=== PATIENT | male | born 1955 | race Asian ===

== ENCOUNTER 2018-03-19 14:40 | Inpatient (IN) | payer MEDICAID ==
[~2018-03-19] VITALS: Ht 165.1 cm; Wt 70.8 kg
[2018-03-19] VITALS (12 sets, daily range): BP systolic 85–112; BP diastolic 52–72
--- NOTE | 2018-03-19 14:34 | Emergency Room Report ---
History of Present Illness General Source: Patient, EMS Present Illness HPI Patient is a 63-year-old male brought in by EMS after a recent fall. The patient reports tripping. The patient is Latvian speaking he reports having previous CVA approximately 3 years ago. He has residual right-sided weakness. Patient denies loss of consciousness. He denies any locations of pain at this time. Patient is normally ambulatory with a cane. He denies any fever or severe pain at this time Allergies: Coded Allergies: No Known Allergies (Unverified , 03/19/18) Patient History Past Medical History: see triage record Reviewed Nursing Documentation: PMH: Agreed; PSxH: Agreed Review of Systems All Other Systems: negative except mentioned in HPI Physical Exam General Appearance: well appearing, no apparent distress, alert, GCS 15 Head: normocephalic, atraumatic ENT: hearing grossly normal, normal voice Neck: full range of motion, supple Respiratory: no respiratory distress, speaking full sentences Cardiovascular #1: normal peripheral pulses, regular rate, rhythm, no edema, no gallop Musculoskeletal: normal inspection, back normal, digits/nails normal, normal range of motion, no calf tenderness 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 Total critical care time excluding procedures approximately 45 minutes. Central Line Central Line : Consent: Verbal Central Line Lumen: triple Maximal Sterile Barrier Tech: yes cap, yes mask, yes sterile gown, yes sterile gloves, yes large sterile sheet, yes hand hygiene, yes chlorhexidine prep Central Line Postion: internal jugular (R) Anesthesia: local cc's of anesthesia: 3 Complications: none Central Line Post Position: sutured, good blood return, position confirmed w / CXR Attempts: One Patient Tolerated: Well Complications: None Medical Decision Making Diagnostic Impression: Primary Impression: Fever Additional Impressions: Pneumonia Septic shock ER Course Patient presented for fever and generalized weakness. Differential diagnosis included wasn't limited to pneumonia, urinary tract infection, drug fever, allergic reaction, sepsis, cholecystitis, among others. Chest x-ray one view interpreted by radiology showed moderate focal size infiltrate in the right mid lung field consistent with pneumonia. Heart is borderline enlarged. Aortic is calcified. The patient was started on IV fluids as well as IV antibiotics. The patient was noted to be briefly hypotensive. Laboratory testing was told for elevated white blood count as well as increased BUN/creatinine consistent with acute renal insufficiency. The patient will be hospitalized for further evaluation and treatment of pneumonia. Patient was discussed with Dr Wolf [facility] for possible transfer and they agree that humbertotent requires further stabilization. The patient was noted to have continued hypotension. Despite IV fluidsThe patient was given IV antibiotics for treated for pneumonia. The patient subsequently be admitted to [facility].The patient says was started on IV pressors. Repeat exam at 1814 showed the continued hypotension and perfusion appeared adequate on skin signs. Dr. Dell Marin was contacted for inpatient management due to panel physician. Labs Test 03/19/18 15:05 White Blood Count 19.0 K/UL (4.8-10.8) Red Blood Count 3.81 M/UL (4.70-6.10) Hemoglobin 10.8 G/DL (14.2-18.0) Hematocrit 31.8 % (42.0-52.0) Mean Corpuscular Volume 83 FL (80-99) Mean Corpuscular Hemoglobin 28.2 PG (27.0-31.0) Mean Corpuscular Hemoglobin Concent 33.9 G/DL (32.0-36.0) Red Cell Distribution Width 11.7 % (11.6-14.8) Platelet Count 397 K/UL (150-450) Mean Platelet Volume 5.7 FL (6.5-10.1) Neutrophils (%) (Auto) % (45.0-75.0) Lymphocytes (%) (Auto) % (20.0-45.0) Monocytes (%) (Auto) % (1.0-10.0) Eosinophils (%) (Auto) % (0.0-3.0) Basophils (%) (Auto) % (0.0-2.0) Sodium Level 132 MMOL/L (136-145) Potassium Level 5.0 MMOL/L (3.5-5.1) Chloride Level 96 MMOL/L (98-107) Carbon Dioxide Level 24 MMOL/L (21-32) Anion Gap 12 mmol/L (5-15) Blood Urea Nitrogen 39 mg/dL (7-18) Creatinine 2.1 MG/DL (0.55-1.30) Estimat Glomerular Filtration Rate 32.0 mL/min (>60) Glucose Level 97 MG/DL (74-106) Calcium Level 9.5 MG/DL (8.5-10.1) Phosphorus Level 4.0 MG/DL (2.5-4.9) Magnesium Level 1.6 MG/DL (1.8-2.4) Total Bilirubin 0.5 MG/DL (0.2-1.0) Aspartate Amino Transf (AST/SGOT) 17 U/L (15-37) Alanine Aminotransferase (ALT/SGPT) 28 U/L (12-78) Alkaline Phosphatase 68 U/L (46-116) Total Creatine Kinase 43 U/L (26-308) Creatine Kinase MB 0.5 NG/ML (0.0-3.6) Creatine Kinase MB Relative Index 1.1 Troponin I 0.107 ng/mL (0.000-0.056) Total Protein 8.1 G/DL (6.4-8.2) Albumin 2.6 G/DL (3.4-5.0) Globulin 5.5 g/dL Albumin/Globulin Ratio 0.5 (1.0-2.7) EKG Diagnostic Results Rate: tachycardiac - 112 Rhythm: NSR ST Segments: no acute changes Status: unchanged Disposition: ADMITTED INPATIENT Condition: Vega Singh March 19, 2018 14:34
[2018-03-19] MEDS ORDERED: Acetaminophen 500mg (ES) tab ORAL ONE (14:45)
[2018-03-19 15:20] LABS: HEMATOCRIT 31.8 % (42.0-52.0); HEMOGLOBIN 10.8 G/DL (14.2-18.0); MEAN CORPUSCULAR VOLUME 83 FL (80-99); PLATELET COUNT 397 K/UL (150-450); RED BLOOD COUNT 3.81 M/UL (4.70-6.10); RED CELL DISTRIBUTION WIDTH 11.7 % (11.6-14.8)
[2018-03-19 15:21] LABS: ANION GAP 12 mmol/L (5-15); BLOOD UREA NITROGEN 39 mg/dL (7-18); CALCIUM 9.5 MG/DL (8.5-10.1); CARBON DIOXIDE 24 MMOL/L (21-32); CHLORIDE 96 MMOL/L (98-107); CREATININE 2.1 MG/DL (0.55-1.30); SODIUM 132 MMOL/L (136-145)
--- NOTE | 2018-03-19 15:26 | Diagnostic Imaging Report ---
Indication: Dyspnea Comparison: None A single view chest radiograph was obtained. Findings: There is a moderate size focal infiltrate in the right mid lung field consistent with pneumonia. The heart is borderline enlarged. Aorta is calcified. The bones are osteopenic. IMPRESSION: Right sided pneumonia.
[2018-03-19 15:34] LABS: ALANINE AMINOTRANSFERASE 28 U/L (12-78); ALBUMIN 2.6 G/DL (3.4-5.0); ALBUMIN/GLOBULIN RATIO 0.5 (1.0-2.7); ALKALINE PHOSPHATASE 68 U/L (46-116); ASPARTATE AMINO TRANSFERASE 17 U/L (15-37); BILIRUBIN,TOTAL 0.5 MG/DL (0.2-1.0); CKMB 0.5 NG/ML (0.0-3.6); CREATINE KINASE 43 U/L (26-308)
[2018-03-19] MEDS ORDERED: Azithromycin 500 MG in D5W 275 ML IVPB ONE (15:45)
[2018-03-19] MEDS ORDERED: cefTRIAXone 1 GM in NS 55 ML IVPB ONE (15:45)
[2018-03-19] MEDS ORDERED: cefTRIAXone 1 GM in D5W 55 ML IVPB ONE (15:45)
[2018-03-19] MEDS ORDERED: Hydrocortisone 100mg Inj IV ONE (16:00)
[2018-03-19] MEDS ORDERED: Sodium Chloride 500ML 500 ML IV ONE (16:00)
[2018-03-19] MEDS ORDERED: Ascorbic Acid 500mg tab ORAL ONE (16:00)
[2018-03-19] MEDS ORDERED: GABAPENTIN100 MG ORAL (16:57)
[2018-03-19] MEDS ORDERED: LISINOPRIL40 MG ORAL (16:57)
[2018-03-19] MEDS ORDERED: AMLODIPINE BESYL5 MG ORAL (16:57)
[2018-03-19] MEDS ORDERED: GLIMEPIRIDE2 MG ORAL (16:57)
[2018-03-19] MEDS ORDERED: METOPROLOL SUCC25 MG ORAL (16:57)
[2018-03-19] MEDS ORDERED: ASPIRIN EC325 MG ORAL (16:57)
[2018-03-19] MEDS ORDERED: JANUVIA100 MG ORAL (16:57)
[2018-03-19] MEDS ORDERED: METFORMIN HCL1000 M1 ORAL (16:57)
[2018-03-19] MEDS ORDERED: LIPITOR20 MG ORAL (16:57)
[2018-03-19] MEDS ORDERED: Calcium Gluconate 1gm/10ml vial IVP ONE (17:00)
[2018-03-19] MEDS ORDERED: Lidocaine 1% Plain 30 ml INJ ONE (17:51)
[2018-03-19] MEDS ORDERED: Levophed 4mg/4mL Inj IV ONE (18:10)
[2018-03-19] MEDS ORDERED: CILOXAN 0.3% O1 DROP (18:10)
[2018-03-19] MEDS ORDERED: Lidocaine 1% MPF 10mg/ml 5ml INJ ONE (18:45)
[2018-03-19 20:20] LABS: APPEARANCE,URINE CLEAR; BILIRUBIN, URINE NEGATIVE (NEGATIVE); GLUCOSE, URINE (UA) NEGATIVE (NEGATIVE); KETONES,URINE NEGATIVE (NEGATIVE); LEUKOCYTE ESTERASE ,URINE 1+ (NEGATIVE); NITRITE,URINE NEGATIVE (NEGATIVE); PH,URINE 5 (4.5-8.0); PROTEIN,URINE 1+ (NEGATIVE); UROBILINOGEN,URINE NORMAL MG/DL (0.0-1.0)
[2018-03-19 20:22] LABS: COLOR,URINE YELLOW
[2018-03-20] VITALS (24 sets, daily range): BP systolic 80–132; BP diastolic 46–65
[2018-03-20] MEDS: Cefepime HCl 1 GM in D5W 55 ML IVPB SCH ×2 (00:35→23:43)
[2018-03-20] MEDS: Albuterol/Ipratropium 3ml neb HHN SCH ×4 (00:47→18:48)
[2018-03-20] MEDS ORDERED: Vancomycin 750mg/NS 250ml IVPB SCH (01:00)
[2018-03-20 05:01] LABS: HEMATOCRIT 28.2 % (42.0-52.0); HEMOGLOBIN 9.9 G/DL (14.2-18.0); MEAN CORPUSCULAR VOLUME 84 FL (80-99); PLATELET COUNT 376 K/UL (150-450); RED BLOOD COUNT 3.38 M/UL (4.70-6.10); RED CELL DISTRIBUTION WIDTH 11.5 % (11.6-14.8); WHITE BLOOD COUNT 15.8 K/UL (4.8-10.8)
--- NOTE | 2018-03-20 05:15 | History and Physical Report ---
DATE OF ADMISSION: 03/19/2018 REASON FOR ADMISSION: Pneumonia, sepsis and shock. HISTORY OF PRESENT ILLNESS: This is a 63-year-old male with prior history of cerebrovascular accident and left-sided weakness who presented to the emergency room today complaining of generalized weakness and a fall with no loss of consciousness. However, he also was noted to have low blood pressure and subsequently and pneumonia on chest x-ray. PAST MEDICAL HISTORY: CVA, hypertension, hyperlipidemia, type 2 diabetes mellitus. MEDICATIONS: Prior to admission, reviewed and reconciled. ALLERGIES: None known. SOCIAL HISTORY: Negative for smoking, alcohol, or substance abuse. REVIEW OF SYSTEMS: No apparent fevers. No history of thyroid disorder. He is on oral therapy for diabetes and a statin drug. He has had a prior stroke with residual weakness on the right. There is no known history of cardiac arrhythmias or myocardial infarction. He does have high blood pressure. There is no history of asthma or blood clots in the legs. He has not noted any change in bowel habits. PHYSICAL EXAMINATION: VITAL SIGNS: Blood pressure in the emergency room was 92/53, heart rate 89, and respiratory rate 18. He was afebrile. HEENT: Notable for conjunctivae are pink. Sclerae are anicteric. Oropharynx clear. Mucous membranes dry. NECK: Supple. LUNGS: With rhonchi. CARDIAC: Regular rhythm and rate. Normal S1 and S2 with a fourth heart sound. ABDOMEN: Soft and nontender. EXTREMITIES: No edema. NEUROLOGIC: With right-sided weakness. There is a central line in the right jugular region. The entry site appearing clean and dry. LABORATORY AND DIAGNOSTIC DATA: White count 19 and hemoglobin 10.8. Potassium 5, sodium 132, bicarbonate 24, BUN 39, and creatinine 2.1. Magnesium 1.6. Troponin 0.107. Albumin 2.6. IMPRESSION: 1. Sepsis. 2. Shock. 3. Hypovolemia. 4. Community-acquired pneumonia. 5. CVA with hemiparesis. 6. Acute myocardial ischemia and possible myocardial infarction. 7. Hypomagnesemia. 8. hyponatremia. PLAN: 1. Hydration. 2. Broad-spectrum antibiotics following cultures. 3. Skin care. 4. Stress ulcer and DVT prophylaxis. 5. Anti-platelet therapy with aspirin. 6. Hold oral hypoglycemics and insulin titration and coverage by sliding scale. 7. Hold antihypertensives. 8. Volume resuscitation. 9. Taper off pressors. 10. Condition is critical and prognosis is guarded. Dell Marin M.D. DR: BETTY JOB#: [id number] CC:
[2018-03-20 05:28] LABS: ALANINE AMINOTRANSFERASE 23 U/L (12-78); ALBUMIN 2.1 G/DL (3.4-5.0); ALBUMIN/GLOBULIN RATIO 0.5 (1.0-2.7); ALKALINE PHOSPHATASE 58 U/L (46-116); ANION GAP 8 mmol/L (5-15); ASPARTATE AMINO TRANSFERASE 14 U/L (15-37); BILIRUBIN,TOTAL 0.4 MG/DL (0.2-1.0); BLOOD UREA NITROGEN 31 mg/dL (7-18); CALCIUM 8.1 MG/DL (8.5-10.1); CARBON DIOXIDE 25 MMOL/L (21-32); CHLORIDE 104 MMOL/L (98-107); CREATININE 1.3 MG/DL (0.55-1.30); POTASSIUM 4.7 MMOL/L (3.5-5.1); SODIUM 137 MMOL/L (136-145)
[2018-03-20] MEDS: NovoLOG Insulin Flexpen SUBQ SCH ×4 (06:05→21:36)
--- NOTE | 2018-03-20 09:51 | Diagnostic Imaging Report ---
Indication: Line placement Comparison: 03/19/2018 at 15:00 A single view chest radiograph was obtained. Findings: Right jugular line is present in good position. The tip is projected over the SVC. There is no pneumothorax. Infiltrate in the right lung consistent with pneumonia. Small infiltrate has developed at left upper lobe as well. Heart remains stable. IMPRESSION: Right jugular central line in good position. No pneumothorax
[2018-03-20] MEDS: Heparin 5000 units/ml inj SUBQ SCH ×2 (10:00→21:32)
[2018-03-20] MEDS ORDERED: NS 500ML ONE (10:01)
[2018-03-20] MEDS ORDERED: Sterile Water Irrig 1000ml IRRIG ONE (10:01)
[2018-03-20] MEDS ORDERED: Tubing IV Secondary IV ONE (10:01)
--- NOTE | 2018-03-20 17:06 | Consultation ---
Consult Note Assessment/Plan dict pneumonia septic shock, resolved DM MONALISA on CKD dehydration agree with current rx Isaiah Sousa MD March 20, 2018 17:06
--- NOTE | 2018-03-20 18:00 | Consultation ---
DATE OF CONSULTATION: PULMONARY CONSULTATION CONSULTING PHYSICIAN: Isaiah Sousa M.D. CHIEF COMPLAINT: Pneumonia and shock. HISTORY OF PRESENT ILLNESS: The patient is a 63-year-old man who apparently fell at home. He was found to have low blood pressure and brought to the emergency department. Evaluation showed evidence of large pneumonia on the right side, and he had fever of 102. Admission was arranged, and he was placed on fluids and vasopressors, and admitted to ICU. Today, he has improved and is off vasopressors and is being transferred out from the ICU. He is in no distress, but does not speak Kinyarwanda and can provide no further history. PAST MEDICAL HISTORY: Includes stroke hypertension, hyperlipidemia, diabetes, as well as obesity. PAST PULMONARY HISTORY: Not known. SMOKING HISTORY: Negative. ALLERGIES: None. REVIEW OF SYSTEMS: Cannot be obtained. Dr. Marin apparently got some review of systems from the family. PHYSICAL EXAMINATION: GENERAL: The patient is alert and responsive. VITAL SIGNS: Show the temperature was 102.8 on presentation, but today, it is 99.6. The other vital signs are normal. His saturation is 93 to 98 on 4 liters nasal cannula. Respirations are 32. SKIN: Skin is warm and dry. HEENT: Head is normocephalic. NECK: No jugular venous distention. CHEST: Few rhonchi on the right side. CARDIAC: Rhythm is regular. ABDOMEN: Soft and nontender. Liver and spleen not enlarged. EXTREMITIES: No clubbing, cyanosis, or edema. LABORATORY AND DIAGNOSTIC DATA: White count was 19,000, down to 15,800 today; hemoglobin is 9.9; and platelets are normal. Chemistry shows blood sugar 158; creatinine is 1.3, down from 2.1 yesterday after fluid resuscitation. Lactic acid was elevated, but is now normal. Albumin is low at 2.1. Urinalysis is negative. Chest x-ray shows a large right upper lobe infiltrate and today, there is a small left upper lobe infiltrate. IMPRESSION: 1. Pneumonia and sepsis. 2. Septic shock, improving. 3. Acute and chronic kidney disease with dehydration. 4. Diabetes. 5. Hypertension. 6. Hyperlipidemia. 7. History of stroke. PLAN: The patient will continue on his current antibiotics. He will continue on bronchodilators and oxygen. He is in satisfactory condition to transfer out of intensive care unit at this time. I will follow closely with you. Isaiah Sousa M.D. DR: CHEVY JOB#: [id number] CC: Dell Marin M.D.
[2018-03-20] MEDS ORDERED: Dyna-Hex 2% Top Sol 2oz TOPIC SCH (20:00)
[2018-03-21 00:05] VITALS: BP 130/70
[2018-03-21] MEDS: Albuterol/Ipratropium 3ml neb HHN SCH ×5 (01:08→23:40)
[2018-03-21] MEDS: Vancomycin 750mg/NS 250ml 250 ML IVPB SCH (01:16)
[2018-03-21 04:00] VITALS: BP 124/71
--- NOTE | 2018-03-21 04:45 | Progress Note ---
DATE: 03/20/2018 INTERNAL MEDICINE PROGRESS NOTE SUBJECTIVE: The patient remains in the intensive care unit. Blood pressure stabilized. He is off pressors. He is not short of breath. OBJECTIVE: VITAL SIGNS: Blood pressure 109/57, pulse 101, respiratory rate 16, and temperature 99.1. HEENT: Oropharynx clear. No thrush. NECK: Supple. No accessory muscle use. LUNGS: With rhonchi and rales at the right. CARDIAC: Regular rhythm and rate. Normal S1, S2 with a fourth heart sound. ABDOMEN: Soft. EXTREMITIES: With no edema. 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 LABORATORY AND DIAGNOSTIC DATA: Potassium 4.7, BUN 31, and creatinine 1.3. Lactic acid now 1.3. Albumin 2.1. Troponin negative. White count 15.8 and hemoglobin 9.9. IMPRESSION: 1. Community-acquired pneumonia, aspiration risk. 2. Sepsis with shock recovered. 3. Microcytic anemia. 4. Severe protein-calorie malnutrition. 5. Acute diastolic congestive heart failure. 6. Prerenal azotemia, resolved. 7. Lactic acidosis. 8. History of cerebrovascular accident. PLAN: 1. Decrease intravenous fluids. 2. Continue antibiotics. 3. Respiratory hygiene. 4. Swallow evaluation. 5. Protein supplement. 6. DVT prophylaxis. 7. Bronchodilators. 8. Follow up culture results and adjust therapy accordingly. 9. Transfer to step-down unit continued stable course. Dell Marin M.D. DR: TAB JOB#: [id number] CC:
[2018-03-21] MEDS: NovoLOG Insulin Flexpen SUBQ SCH ×4 (06:53→21:05)
[2018-03-21 08:00] VITALS: BP 123/74
[2018-03-21] MEDS: Heparin 5000 units/ml inj SUBQ SCH ×2 (08:58→21:06)
[2018-03-21 09:30] LABS: ALANINE AMINOTRANSFERASE 27 U/L (12-78); ALBUMIN/GLOBULIN RATIO 0.4 (1.0-2.7); ALKALINE PHOSPHATASE 61 U/L (46-116); ANION GAP 9 mmol/L (5-15); ASPARTATE AMINO TRANSFERASE 15 U/L (15-37); BILIRUBIN,TOTAL 0.3 MG/DL (0.2-1.0); BLOOD UREA NITROGEN 11 mg/dL (7-18); CALCIUM 8.1 MG/DL (8.5-10.1); CARBON DIOXIDE 25 MMOL/L (21-32); CHLORIDE 104 MMOL/L (98-107); CREATININE 0.9 MG/DL (0.55-1.30); POTASSIUM 3.7 MMOL/L (3.5-5.1); SODIUM 138 MMOL/L (136-145)
[2018-03-21 09:31] LABS: HEMATOCRIT 28.8 % (42.0-52.0); HEMOGLOBIN 9.7 G/DL (14.2-18.0); MEAN CORPUSCULAR VOLUME 84 FL (80-99); PLATELET COUNT 362 K/UL (150-450); RED BLOOD COUNT 3.41 M/UL (4.70-6.10); RED CELL DISTRIBUTION WIDTH 11.7 % (11.6-14.8); WHITE BLOOD COUNT 13.6 K/UL (4.8-10.8)
[2018-03-21 12:00] VITALS: BP 123/65
--- NOTE | 2018-03-21 15:22 | Cardiology Report ---
APPROVED REPORT EKG Measurement Heart [id number] Sinus tachycardia Otherwise normal ECG
[2018-03-21 16:00] VITALS: BP 129/73
[2018-03-21] MEDS ORDERED: Tubing IV Secondary IV ONE (16:44)
--- NOTE | 2018-03-21 17:45 | Consultation ---
DATE OF CONSULTATION: 03/21/2018 INFECTIOUS DISEASES CONSULTATION CONSULTING PHYSICIAN: Castro Leonard M.D. REFERRING PHYSICIAN: Dell Marin M.D. REASON FOR CONSULTATION: Pneumonia. HISTORY OF PRESENTING ILLNESS: This is a 63-year-old gentleman with history of diabetes, hypertension, CVA, and hyperlipidemia, who came into the emergency room with weakness and a fall with no loss of consciousness. He was found to be hypotensive and found to have pneumonia on the chest x-ray and an Infectious Diseases consultation has been obtained for antibiotics. PAST MEDICAL HISTORY: 1. History of diabetes. 2. Hypertension. 3. CVA. 4. Hyperlipidemia. MEDICATIONS: As an inpatient, the patient is on cefepime, chlorhexidine gluconate, aspirin, gabapentin, subcutaneous heparin, Protonix, IV vancomycin, insulin, Tylenol, albuterol, and ipratropium. ALLERGIES: No known drug allergies. SOCIAL HISTORY: No history of smoking, alcohol, or drug use. FAMILY HISTORY: Unknown. REVIEW OF SYSTEMS: Unable to obtain currently. PHYSICAL EXAMINATION: VITAL SIGNS: Temperature of 97.9, T-max of 99.6, pulse of 119, respiratory rate of 20, blood pressure 123/74, and O2 saturation of 97%. HEENT: Pupils equally reactive to light and accommodation. Mouth appears clean without thrush. NECK: Supple. No adenopathy. No jugular venous distention. CARDIOVASCULAR: Regular rate and rhythm. No murmurs. LUNGS: Clear to auscultation bilaterally. No crackles. No wheezes. ABDOMEN: Soft and nontender. No organomegaly. EXTREMITIES: No cyanosis, no clubbing, no edema. Right IJ catheter noted. LABORATORY AND DIAGNOSTIC DATA: White count 13.6, hemoglobin 9.7, hematocrit 28.8, MCV 84, and platelet count of 362,000 with neutrophils of 95%. White count of 15 on 03/20/2018 and white count of 19 on 03/19/2018. Sodium 138, potassium 3.7, chloride 104, bicarb 25, BUN 11, creatinine 0.9, glucose 184, and calcium 8.1. Total bilirubin 0.3. AST 15, ALT 27, and alkaline phosphatase 61. Total protein 6.8. Albumin of 2. UA is showing 2 to 4 white cells. Sputum cultures are pending. Blood cultures are negative. Chest x-ray is showing right-sided pneumonia. ASSESSMENT: 1. This is a 63-year-old gentleman with history of diabetes and hypertension, who comes in after a fall and weakness and is found to have a right-sided pneumonia. 2. Leukocytosis is improving. 3. Diabetes. 4. Hypertension. PLAN: 1. Continue vancomycin and cefepime. 2. We will follow up sputum cultures and adjust antibiotics accordingly. 3. We will order for serum Legionella antibody. 4. We will order for mycoplasma serology. 5. We will add doxycycline. I would like to thank, Dr. Marin, for this consultation. Castro Leonard M.D. DR: MALLORY JOB#: [id number] CC: Dell Marin M.D.
[2018-03-21 20:00] VITALS: BP 124/63
[2018-03-21] MEDS: Dyna-Hex 2% Top Sol 2oz TOPIC SCH (20:08)
--- NOTE | 2018-03-21 20:45 | Progress Note ---
DATE: 03/21/2018 CARDIOLOGY PROGRESS NOTE SUBJECTIVE: The patient feels better. No shortness of breath. Less cough and congestion. OBJECTIVE: VITAL SIGNS: Blood pressure 123/74, pulse 119, respiratory rate 20 and afebrile. Oxygen saturation is 97% on 3 liters nasal cannula. LUNGS: Bilateral breath sounds. Rhonchi at the . CARDIAC: Regular rhythm and rate. Normal S1 and S2. ABDOMEN: Soft. EXTREMITIES: No edema. IMPRESSION: 1. Right upper lobe pneumonia, probable aspiration. 2. History of cerebrovascular accident with left-sided weakness. 3. Recovered sepsis with shock. 4. Resolving leukocytosis. 5. Microcytic anemia. 6. Severe protein-calorie malnutrition. 7. Chronic diastolic congestive heart failure and hypertensive heart disease. PLAN: 1. Continue antimicrobials. 2. Respiratory hygiene. 3. Follow up laboratory studies. 4. Nutritional support. 5. Swallow evaluation. 6. Repeat chest x-ray. Dell Marin M.D. DR: BETTY JOB#: [id number] CC:
[2018-03-22] MEDS ORDERED: Cefepime HCl 1 GM in D5W 55 ML IVPB SCH ×2
[2018-03-22 00:01] VITALS: BP 126/59
[2018-03-22] MEDS: Vancomycin 750mg/NS 250ml 250 ML IVPB SCH (01:30)
[2018-03-22] MEDS: Vancomycin 1gm/D5W 275ml IVPB SCH ×4 (01:59→13:46)
[2018-03-22] MEDS ORDERED: Vancomycin 1gm/D5W 275ml IVPB SCH ×2 (02:00)
[2018-03-22 04:00] VITALS: BP 120/55
[2018-03-22 06:11] LABS: ALANINE AMINOTRANSFERASE 38 U/L (12-78); ALBUMIN/GLOBULIN RATIO 0.4 (1.0-2.7); ALKALINE PHOSPHATASE 68 U/L (46-116); ANION GAP 5 mmol/L (5-15); ASPARTATE AMINO TRANSFERASE 24 U/L (15-37); BILIRUBIN,TOTAL 0.3 MG/DL (0.2-1.0); BLOOD UREA NITROGEN 10 mg/dL (7-18); CALCIUM 8.3 MG/DL (8.5-10.1); CARBON DIOXIDE 31 MMOL/L (21-32); CHLORIDE 102 MMOL/L (98-107); POTASSIUM 3.6 MMOL/L (3.5-5.1); SODIUM 138 MMOL/L (136-145)
[2018-03-22] MEDS: NovoLOG Insulin Flexpen SUBQ SCH ×4 (06:25→20:53)
[2018-03-22 07:47] VITALS: BP 117/71
[2018-03-22] MEDS: Albuterol/Ipratropium 3ml neb HHN SCH ×3 (08:13→18:42)
[2018-03-22] MEDS: Heparin 5000 units/ml inj SUBQ SCH ×2 (08:29→20:52)
[2018-03-22] MEDS: Cefepime HCl 1 GM in D5W 55 ML IVPB SCH ×2 (09:25→20:50)
[2018-03-22] MEDS ORDERED: NS 500ML ONE (10:40)
[2018-03-22 11:43] VITALS: BP 131/73
[2018-03-22 16:03] VITALS: BP 117/69
--- NOTE | 2018-03-22 19:53 | Pulmonology Progress Note ---
Assessment/Plan Assessment/Plan 1. Pneumonia and sepsis. 2. Septic shock, improving. 3. Acute and chronic kidney disease with dehydration. 4. Diabetes. 5. Hypertension. 6. Hyperlipidemia. 7. History of stroke. continue abx nebs ad o2 oob encourage po watch IO bs control CXR saturday Subjective Constitutional: Reports: no symptoms HEENT: Repors: no symptoms Respiratory: Reports: dry cough, sputum Cardiovascular: Reports: no symptoms Gastrointestinal/Abdominal: Reports: no symptoms Genitourinary: Reports: no symptoms Psychiatric: Reports: no symptoms Allergies: Coded Allergies: No Known Allergies (Unverified , 03/19/18) Subjective minimal po no cp nv or bleeding no fever positive cough on o2 Objective Last 24 Hour Vital Signs Date Time Temp Pulse Resp B/P (MAP) Pulse Ox O2 Delivery O2 Flow Rate FiO2 03/22/18 18:50 95 20 99 Nasal Cannula 3.0 32 03/22/18 18:43 Nasal Cannula 3.0 32 03/22/18 18:43 94 Nasal Cannula 3.0 32 03/22/18 18:42 92 20 94 Nasal Cannula 3.0 32 03/22/18 16:05 94 03/22/18 16:03 97.6 71 18 117/69 96 Nasal Cannula 2.0 97.6 03/22/18 14:22 86 20 99 Nasal Cannula 3.0 32 03/22/18 14:12 82 18 98 Nasal Cannula 3.0 32 03/22/18 12:00 84 03/22/18 11:43 98.2 92 18 131/73 95 Nasal Cannula 2.0 98.2 03/22/18 08:23 86 20 99 Nasal Cannula 3.0 32 03/22/18 08:13 83 20 96 Nasal Cannula 3.0 32 03/22/18 08:13 96 Nasal Cannula 3.0 32 03/22/18 08:12 Nasal Cannula 3.0 32 03/22/18 08:00 106 03/22/18 07:47 97.7 106 20 117/71 97 Nasal Cannula 2.0 97.7 03/22/18 04:00 98.2 106 18 120/55 95 98.2 03/22/18 04:00 106 03/22/18 04:00 98.2 106 18 120/55 95 Nasal Cannula 3.0 98.2 03/22/18 00:01 98.6 99 18 126/59 97 98.6 03/22/18 00:01 98.6 99 18 126/59 97 Nasal Cannula 3.0 98.6 03/22/18 00:00 101 03/21/18 23:47 93 18 100 Nasal Cannula 3.0 32 03/21/18 23:40 83 18 98 Nasal Cannula 3.0 32 03/21/18 20:00 97.0 112 18 124/63 98 97.0 03/21/18 20:00 97.0 112 18 124/63 98 Nasal Cannula 3.0 97.0 03/21/18 20:00 114 Intake and Output 03/21/18 03/22/18 19:00 07:00 Intake Total 1150 ml 860.0 ml Output Total 1350 ml 2400 ml Balance -200 ml -1540.0 ml Intake Oral 600 ml IV Total 550 ml 860.0 ml Output Urine Total 1350 ml 2400 ml # Voids 2 General Appearance: WD/WN HEENT: anicteric Respiratory/Chest: rhonchi Cardiovascular: normal rate, regular rhythm Abdomen: soft, non tender, no organomegaly Extremities: no cyanosis Skin: no rash, no lesions Neurologic/Psychiatric: alert Microbiology Date/Time Source Procedure Growth Status 03/20/18 08:30 Sputum Gram Stain - Final Resulted 03/20/18 08:30 Sputum Sputum Culture - Preliminary NORMAL UPPER RESPIRATORY KELLY AT 24 ... Resulted Laboratory Tests 03/22/18 00:45: Vancomycin Level Trough 3.2L 03/22/18 03:50: Sodium Level 138, Potassium Level 3.6, Chloride Level 102, Carbon Dioxide Level 31, Anion Gap 5, Blood Urea Nitrogen 10, Creatinine 1.0, Estimat Glomerular Filtration Rate > 60, Glucose Level 190H, Calcium Level 8.3L, Total Bilirubin 0.3, Aspartate Amino Transf (AST/SGOT) 24, Alanine Aminotransferase (ALT/SGPT) 38, Alkaline Phosphatase 68, Pro-B-Type Natriuretic Peptide 1216H, Total Protein 6.9, Albumin 2.0L, Globulin 4.9, Albumin/Globulin Ratio 0.4L Current Medications Medications (Trade) Dose Ordered Sig/Jennifer Route PRN Reason Start Time Stop Time Status Last Admin Dose Admin Acetaminophen (Tylenol) 650 mg Q4H PRN ORAL Mild Pain/Temp > 100.5 03/21/18 02:45 04/18/18 22:44 Albuterol/ Ipratropium (Albuterol/ Ipratropium) 3 ml Q6HRT HHN 03/21/18 01:00 03/25/18 00:59 03/22/18 18:42 Aspirin (ASA) 325 mg DAILY ORAL 03/21/18 09:00 04/19/18 08:59 03/22/18 08:28 Cefepime HCl 1 gm/ Dextrose 55 ml @ 110 mls/hr Q12HR IVPB 03/22/18 10:00 03/29/18 09:59 03/22/18 09:25 Chlorhexidine Gluconate (Юлия-Hex 2%) 1 applic DAILY@2000 TOPIC 03/21/18 20:00 04/19/18 19:59 03/21/18 20:08 Dextrose (Dextrose 50%) 25 ml STAT PRN IV Hypoglycemia 03/21/18 22:45 04/18/18 22:44 Dextrose (Dextrose 50%) 50 ml STAT PRN IV Hypoglycemia 03/21/18 22:45 04/18/18 22:44 Doxycycline Monohydrate (Vibramycin) 100 mg EVERY 12 HOURS ORAL 03/21/18 13:00 03/28/18 12:59 03/22/18 08:27 Gabapentin (Neurontin) 100 mg THREE TIMES A DAY ORAL 03/21/18 09:00 04/19/18 08:59 03/22/18 17:27 Heparin Sodium (Porcine) (Heparin 5000 units/ml) 5,000 units EVERY 12 HOURS SUBQ 03/21/18 09:00 04/19/18 08:59 03/22/18 08:29 Insulin Aspart (NovoLOG) BEFORE MEALS AND HS SUBQ 03/21/18 06:30 04/19/18 06:29 03/22/18 16:30 Pantoprazole (Protonix) 40 mg DAILY ORAL 03/21/18 09:00 04/19/18 08:59 03/22/18 08:27 Sodium Chloride 1,000 ml @ 50 mls/hr Q20H IV 03/21/18 02:00 04/20/18 01:59 03/22/18 17:27 Vancomycin HCl (Vanco rx to dose) 1 ea DAILY PRN MISC Per rx protocol 03/21/18 09:00 04/18/18 22:44 Vancomycin HCl 1 gm/Dextrose 275 ml @ 183.708 mls/hr Q12H IVPB 03/22/18 02:00 03/27/18 01:59 03/22/18 13:46 KESHA PURDY DO March 22, 2018 19:53
[2018-03-22 20:00] VITALS: BP 133/74
[2018-03-22] MEDS: Dyna-Hex 2% Top Sol 2oz TOPIC SCH (20:50)
[2018-03-23 00:07] VITALS: BP 133/79
[2018-03-23] MEDS: Albuterol/Ipratropium 3ml neb HHN SCH ×4 (00:43→18:42)
[2018-03-23] MEDS: Vancomycin 1gm/D5W 275ml IVPB SCH ×2 (02:27)
[2018-03-23 04:00] VITALS: BP 134/79
[2018-03-23 05:31] LABS: BASOPHILS % (AUTO) 0.6 % (0.0-2.0); HEMATOCRIT 28.9 % (42.0-52.0); HEMOGLOBIN 9.6 G/DL (14.2-18.0); LYMPHOCYTES % (AUTO) 10.5 % (20.0-45.0); MEAN CORPUSCULAR VOLUME 84 FL (80-99); MONOCYTES % (AUTO) 7.1 % (1.0-10.0); NEUTROPHILS % (AUTO) 79.9 % (45.0-75.0); PLATELET COUNT 413 K/UL (150-450); RED BLOOD COUNT 3.43 M/UL (4.70-6.10); RED CELL DISTRIBUTION WIDTH 11.7 % (11.6-14.8); WHITE BLOOD COUNT 9.9 K/UL (4.8-10.8)
[2018-03-23] MEDS: NovoLOG Insulin Flexpen SUBQ SCH ×4 (06:25→21:35)
--- NOTE | 2018-03-23 07:07 | Pulmonology Progress Note ---
Assessment/Plan Assessment/Plan 1. Pneumonia and sepsis. 2. Septic shock, improving. 3. Acute and chronic kidney disease with dehydration. 4. Diabetes. 5. Hypertension. 6. Hyperlipidemia. 7. History of stroke. better today continue abx nebs ad o2 oob encourage po watch IO bs control CXR saturday Subjective Constitutional: Reports: no symptoms HEENT: Repors: no symptoms Respiratory: Reports: no symptoms Cardiovascular: Reports: no symptoms Gastrointestinal/Abdominal: Reports: no symptoms Genitourinary: Reports: no symptoms Allergies: Coded Allergies: No Known Allergies (Unverified , 03/19/18) Subjective hungry this am more awake feels better less cough today no cp nv or bleeding no fever on o2 Objective Last 24 Hour Vital Signs Date Time Temp Pulse Resp B/P (MAP) Pulse Ox O2 Delivery O2 Flow Rate FiO2 03/23/18 06:38 95 Nasal Cannula 3.0 32 03/23/18 06:38 88 16 95 Nasal Cannula 3.0 32 03/23/18 06:38 Nasal Cannula 3.0 32 03/23/18 04:00 91 03/23/18 04:00 97.3 92 18 134/79 95 Nasal Cannula 3.0 97.3 03/23/18 00:53 92 20 100 Nasal Cannula 3.0 32 03/23/18 00:43 90 20 95 Nasal Cannula 3.0 32 03/23/18 00:07 98.9 100 18 133/79 94 Nasal Cannula 3.0 98.9 03/23/18 00:00 99 03/22/18 20:00 99.0 102 19 133/74 95 Nasal Cannula 3.0 99.0 03/22/18 19:36 102 03/22/18 18:50 95 20 99 Nasal Cannula 3.0 32 03/22/18 18:43 Nasal Cannula 3.0 32 03/22/18 18:43 94 Nasal Cannula 3.0 32 03/22/18 18:42 92 20 94 Nasal Cannula 3.0 32 03/22/18 16:05 94 03/22/18 16:03 97.6 71 18 117/69 96 Nasal Cannula 2.0 97.6 03/22/18 14:22 86 20 99 Nasal Cannula 3.0 32 03/22/18 14:12 82 18 98 Nasal Cannula 3.0 32 03/22/18 12:00 84 03/22/18 11:43 98.2 92 18 131/73 95 Nasal Cannula 2.0 98.2 03/22/18 08:23 86 20 99 Nasal Cannula 3.0 32 03/22/18 08:13 83 20 96 Nasal Cannula 3.0 32 03/22/18 08:13 96 Nasal Cannula 3.0 32 03/22/18 08:12 Nasal Cannula 3.0 32 03/22/18 08:00 106 03/22/18 07:47 97.7 106 20 117/71 97 Nasal Cannula 2.0 97.7 Intake and Output 03/22/18 03/23/18 19:00 07:00 Intake Total 1987.700 ml 1230.000 ml Output Total 1500 ml 1700 ml Balance 487.700 ml -470.000 ml Intake Oral 1080 ml 350 ml IV Total 907.700 ml 880.000 ml Output Urine Total 1500 ml 1700 ml General Appearance: WD/WN Respiratory/Chest: rhonchi Cardiovascular: normal rate, regular rhythm Abdomen: soft, non tender, no organomegaly Extremities: no cyanosis, no clubbing Skin: no lesions 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 Resulted Laboratory Tests 03/23/18 04:30: White Blood Count 9.9, Red Blood Count 3.43L, Hemoglobin 9.6L, Hematocrit 28.9L , Mean Corpuscular Volume 84, Mean Corpuscular Hemoglobin 28.1, Mean Corpuscular Hemoglobin Concent 33.4, Red Cell Distribution Width 11.7, Platelet Count 413, Mean Platelet Volume 5.8L, Neutrophils (%) (Auto) 79.9H, Lymphocytes (%) (Auto) 10.5L, Monocytes (%) (Auto) 7.1, Eosinophils (%) (Auto) 2.0, Basophils (%) (Auto) 0.6 Current Medications Medications (Trade) Dose Ordered Sig/Jennifer Route PRN Reason Start Time Stop Time Status Last Admin Dose Admin Acetaminophen (Tylenol) 650 mg Q4H PRN ORAL Mild Pain/Temp > 100.5 5/4/18 02:45 04/18/18 22:44 Albuterol/ Ipratropium (Albuterol/ Ipratropium) 3 ml Q6HRT HHN 03/21/18 01:00 03/25/18 00:59 03/23/18 06:38 Aspirin (ASA) 325 mg DAILY ORAL 03/21/18 09:00 04/19/18 08:59 03/22/18 08:28 Cefepime HCl 1 gm/ Dextrose 55 ml @ 110 mls/hr Q12HR IVPB 03/22/18 10:00 03/29/18 09:59 03/22/18 20:50 Chlorhexidine Gluconate (Юлия-Hex 2%) 1 applic DAILY@2000 TOPIC 03/21/18 20:00 04/19/18 19:59 03/22/18 20:50 Dextrose (Dextrose 50%) 25 ml STAT PRN IV Hypoglycemia 03/21/18 22:45 04/18/18 22:44 Dextrose (Dextrose 50%) 50 ml STAT PRN IV Hypoglycemia 03/21/18 22:45 04/18/18 22:44 Doxycycline Monohydrate (Vibramycin) 100 mg EVERY 12 HOURS ORAL 03/21/18 13:00 03/28/18 12:59 03/22/18 20:50 Gabapentin (Neurontin) 100 mg THREE TIMES A DAY ORAL 03/21/18 09:00 04/19/18 08:59 03/22/18 17:27 Heparin Sodium (Porcine) (Heparin 5000 units/ml) 5,000 units EVERY 12 HOURS SUBQ 03/21/18 09:00 04/19/18 08:59 03/22/18 20:52 Insulin Aspart (NovoLOG) BEFORE MEALS AND HS SUBQ 03/21/18 06:30 04/19/18 06:29 03/23/18 06:25 Pantoprazole (Protonix) 40 mg DAILY ORAL 03/21/18 09:00 04/19/18 08:59 03/22/18 08:27 Sodium Chloride 1,000 ml @ 50 mls/hr Q20H IV 03/21/18 02:00 04/20/18 01:59 03/22/18 17:27 Vancomycin HCl (Vanco rx to dose) 1 ea DAILY PRN MISC Per rx protocol 03/21/18 09:00 04/18/18 22:44 Vancomycin HCl 1 gm/Dextrose 275 ml @ 183.708 mls/hr Q12H IVPB 03/22/18 02:00 03/27/18 01:59 03/23/18 02:27 KESHA PURDY DO March 23, 2018 07:07
[2018-03-23 08:00] VITALS: BP 124/65
[2018-03-23] MEDS ORDERED: Milk of Magnesia 30ml Ud ORAL PRN (08:30)
[2018-03-23] MEDS: Docusate 250mg cap ORAL SCH (08:32)
[2018-03-23] MEDS: Cefepime HCl 1 GM in D5W 55 ML IVPB SCH ×2 (08:32→21:09)
[2018-03-23] MEDS: Heparin 5000 units/ml inj SUBQ SCH ×2 (08:40→21:14)
[2018-03-23 12:00] VITALS: BP 124/69
[2018-03-23] MEDS: Vancomycin 1250mg/D5W 250ml IVPB SCH (15:33)
[2018-03-23 16:00] VITALS: BP 125/70
[2018-03-23] MEDS: Dyna-Hex 2% Top Sol 2oz TOPIC SCH (19:46)
[2018-03-23 20:00] VITALS: BP 125/70
[2018-03-24] VITALS: BP 128/78
[2018-03-24] MEDS: Albuterol/Ipratropium 3ml neb HHN SCH ×3 (01:02→13:31)
--- NOTE | 2018-03-24 02:30 | Progress Note ---
DATE: 03/22/2018 INTERNAL MEDICINE PROGRESS NOTE SUBJECTIVE: The patient is in no distress. Cough is decreasing. No chest pain. He remains on oxygen by nasal cannula. PHYSICAL EXAMINATION: VITAL SIGNS: Blood pressure 117/69, pulse 71, and respiratory rate 18. LUNGS: Bilateral breath sounds with rhonchi at the right. HEART: Regular rhythm and rate. Normal S1 and S2. ABDOMEN: Soft. EXTREMITIES: No edema. HOSPITAL COURSE: The patient's appetite remains poor. LABORATORY AND DIAGNOSTIC DATA: Chest x-ray completed, results pending. Labs, potassium 3.6, BUN 10, and creatinine 1. Albumin 2.0. Pro-natriuretic peptide 1200. White count 9.9 and hemoglobin 9.6. IMPRESSION: 1. Pneumonia. 2. Cerebrovascular accident with left-sided weakness. 3. Hypertensive heart disease. 4. Acute on chronic diastolic congestive heart failure. 5. Anemia. 6. Severe protein-calorie malnutrition. PLAN: 1. Antimicrobials. 2. Respiratory hygiene. 3. Nutritional support. 4. Swallow evaluation. 5. Adjust IV fluids. Dlel Marin M.D. DR: BETTY JOB#: [id number] CC:
--- NOTE | 2018-03-24 02:45 | Progress Note ---
DATE: 03/22/2018 INTERNAL MEDICINE PROGRESS NOTE SUBJECTIVE: No new complaints. Remains on nasal cannula, saturation 94% on 3 liters. OBJECTIVE: VITAL SIGNS: Stable. No fevers. LUNGS: With rhonchi and rales at the right. CARDIAC: Regular rhythm and rate. Normal S1 and S2. ABDOMEN: Soft. EXTREMITIES: No edema. Left weakness. Left hand amputated digits. IMPRESSION: 1. Aspiration and community-acquired pneumonia. 2. Cerebrovascular accident with left weakness, probable component of dysphagia. 3. Severe protein-calorie malnutrition. 4. Anemia. 5. Hypertensive heart disease. 6. Type 2 diabetes mellitus with hyperglycemia. PLAN: 1. Discontinue IV fluids. 2. Continue antimicrobials, cultures remain negative. 3. Antiplatelet therapy. 4. Respiratory hygiene. 5. Advance anti-failure regimen. 6. Follow up chest x-ray. 7. Restart oral hypoglycemic agents. Dell Marin M.D. DR: BETTY JOB#: [id number] CC:
[2018-03-24] MEDS: Vancomycin 1250mg/D5W 250ml IVPB SCH ×2 (03:49→15:40)
[2018-03-24 04:00] VITALS: BP 128/75
[2018-03-24 06:21] LABS: BASOPHILS % (AUTO) 0.7 % (0.0-2.0); EOSINOPHILS % (AUTO) 1.9 % (0.0-3.0); HEMATOCRIT 28.1 % (42.0-52.0); HEMOGLOBIN 9.7 G/DL (14.2-18.0); MEAN CORPUSCULAR VOLUME 84 FL (80-99); MONOCYTES % (AUTO) 5.8 % (1.0-10.0); NEUTROPHILS % (AUTO) 79.5 % (45.0-75.0); PLATELET COUNT 420 K/UL (150-450); RED BLOOD COUNT 3.35 M/UL (4.70-6.10); RED CELL DISTRIBUTION WIDTH 11.6 % (11.6-14.8); WHITE BLOOD COUNT 9.9 K/UL (4.8-10.8)
[2018-03-24] MEDS: NovoLOG Insulin Flexpen SUBQ SCH ×4 (06:43→20:43)
[2018-03-24 06:53] LABS: ALANINE AMINOTRANSFERASE 121 U/L (12-78); ALBUMIN 2.1 G/DL (3.4-5.0); ALBUMIN/GLOBULIN RATIO 0.5 (1.0-2.7); ALKALINE PHOSPHATASE 77 U/L (46-116); ANION GAP 7 mmol/L (5-15); ASPARTATE AMINO TRANSFERASE 63 U/L (15-37); BILIRUBIN,TOTAL 0.3 MG/DL (0.2-1.0); BLOOD UREA NITROGEN 10 mg/dL (7-18); CALCIUM 8.1 MG/DL (8.5-10.1); CARBON DIOXIDE 29 MMOL/L (21-32); CHLORIDE 104 MMOL/L (98-107); CREATININE 0.9 MG/DL (0.55-1.30); POTASSIUM 3.8 MMOL/L (3.5-5.1); SODIUM 140 MMOL/L (136-145)
[2018-03-24 08:00] VITALS: BP 128/63
[2018-03-24] MEDS ORDERED: Lisinopril 20mg tab ORAL SCH (09:00)
[2018-03-24] MEDS ORDERED: Metoprolol Succinate XL 25mg tab ORAL SCH (09:00)
[2018-03-24] MEDS ORDERED: metFORMIN 500mg tab ORAL SCH (09:00)
[2018-03-24] MEDS: Cefepime HCl 1 GM in D5W 55 ML IVPB SCH ×2 (09:52→20:41)
[2018-03-24] MEDS: Docusate 250mg cap ORAL SCH (09:52)
[2018-03-24] MEDS: Heparin 5000 units/ml inj SUBQ SCH ×2 (09:55→20:42)
[2018-03-24] MEDS ORDERED: NS 275ml ONE (09:59)
[2018-03-24 12:00] VITALS: BP 134/73
--- NOTE | 2018-03-24 13:01 | Pulmonology Progress Note ---
Assessment/Plan Assessment/Plan 1. Pneumonia and sepsis. 2. Septic shock, improving. 3. Acute and chronic kidney disease with dehydration. 4. Diabetes. 5. Hypertension. 6. Hyperlipidemia. 7. History of stroke. improving CXR pdg mobilize dc planning Subjective ROS Limited/Unobtainable: Yes Allergies: Coded Allergies: No Known Allergies (Unverified , 03/19/18) Objective Last 24 Hour Vital Signs Date Time Temp Pulse Resp B/P (MAP) Pulse Ox O2 Delivery O2 Flow Rate FiO2 03/24/18 12:00 97.9 87 18 134/73 93 Room Air 97.9 03/24/18 09:53 88 128/63 03/24/18 09:53 128/63 03/24/18 08:00 97.7 88 18 128/63 99 Nasal Cannula 2.0 97.7 03/24/18 08:00 95 03/24/18 07:39 95 16 96 Nasal Cannula 3.0 32 03/24/18 07:31 Nasal Cannula 3.0 32 03/24/18 07:30 98 Nasal Cannula 3.0 32 03/24/18 07:29 96 18 98 Nasal Cannula 3.0 32 03/24/18 04:00 98.4 100 20 128/75 95 Nasal Cannula 2.0 98.4 03/24/18 04:00 91 03/24/18 01:20 97 18 98 Nasal Cannula 3.0 32 03/24/18 01:02 94 16 93 Nasal Cannula 3.0 32 03/24/18 00:00 99.0 100 24 128/78 94 Room Air 99.0 03/24/18 00:00 89 03/23/18 20:00 99.0 100 24 125/70 94 Nasal Cannula 2.0 99.0 03/23/18 20:00 98 03/23/18 18:58 95 18 97 Nasal Cannula 3.0 32 03/23/18 18:44 88 16 94 Nasal Cannula 3.0 32 03/23/18 18:43 Nasal Cannula 3.0 32 03/23/18 18:43 94 Nasal Cannula 3.0 32 03/23/18 16:00 84 03/23/18 16:00 97.9 90 20 125/70 97 Nasal Cannula 2.0 97.9 Intake and Output 03/23/18 03/24/18 19:00 07:00 Intake Total 1310.000 ml 555.000 ml Output Total 850 ml 700 ml Balance 460.000 ml -145.000 ml Intake Oral 360 ml IV Total 950.000 ml 555.000 ml Output Urine Total 850 ml 700 ml General Appearance: no acute distress Respiratory/Chest: crackles/rales Cardiovascular: normal rate Abdomen: soft, non tender Laboratory Tests 03/23/18 13:05: Vancomycin Level Trough 10.4 03/24/18 04:00: White Blood Count 9.9, Red Blood Count 3.35L, Hemoglobin 9.7L, Hematocrit 28.1L , Mean Corpuscular Volume 84, Mean Corpuscular Hemoglobin 28.8, Mean Corpuscular Hemoglobin Concent 34.4, Red Cell Distribution Width 11.6, Platelet Count 420, Mean Platelet Volume 5.9L, Neutrophils (%) (Auto) 79.5H, Lymphocytes (%) (Auto) 12.0L, Monocytes (%) (Auto) 5.8, Eosinophils (%) (Auto) 1.9, Basophils (%) (Auto) 0.7, Sodium Level 140, Potassium Level 3.8, Chloride Level 104, Carbon Dioxide Level 29, Anion Gap 7, Blood Urea Nitrogen 10, Creatinine 0.9, Estimat Glomerular Filtration Rate > 60, Glucose Level 184H, Calcium Level 8.1L, Magnesium Level 1.8, Total Bilirubin 0.3, Aspartate Amino Transf (AST/SGOT ) 63H, Alanine Aminotransferase (ALT/SGPT) 121H, Alkaline Phosphatase 77, Total Protein 6.5, Albumin 2.1L, Globulin 4.4, Albumin/Globulin Ratio 0.5L Current Medications Medications (Trade) Dose Ordered Sig/Jennifer Route PRN Reason Start Time Stop Time Status Last Admin Dose Admin Acetaminophen (Tylenol) 650 mg Q4H PRN ORAL Mild Pain/Temp > 100.5 03/21/18 02:45 04/18/18 22:44 Albuterol/ Ipratropium (Albuterol/ Ipratropium) 3 ml Q6HRT HHN 03/21/18 01:00 03/25/18 00:59 03/24/18 07:27 Aspirin (ASA) 325 mg DAILY ORAL 03/21/18 09:00 04/19/18 08:59 03/24/18 09:52 Cefepime HCl 1 gm/ Dextrose 55 ml @ 110 mls/hr Q12HR IVPB 03/22/18 10:00 03/29/18 09:59 03/24/18 09:52 Chlorhexidine Gluconate (Юлия-Hex 2%) 1 applic DAILY@2000 TOPIC 03/21/18 20:00 04/19/18 19:59 03/23/18 19:46 Dextrose (Dextrose 50%) 25 ml STAT PRN IV Hypoglycemia 03/21/18 22:45 04/18/18 22:44 Dextrose (Dextrose 50%) 50 ml STAT PRN IV Hypoglycemia 03/21/18 22:45 04/18/18 22:44 Docusate Sodium (Colace) 250 mg DAILY ORAL 03/23/18 09:00 04/22/18 08:59 03/24/18 09:52 Doxycycline Monohydrate (Vibramycin) 100 mg EVERY 12 HOURS ORAL 03/21/18 13:00 03/28/18 12:59 03/24/18 09:54 Gabapentin (Neurontin) 100 mg THREE TIMES A DAY ORAL 03/21/18 09:00 04/19/18 08:59 03/24/18 12:39 Heparin Sodium (Porcine) (Heparin 5000 units/ml) 5,000 units EVERY 12 HOURS SUBQ 03/21/18 09:00 04/19/18 08:59 03/24/18 09:55 Insulin Aspart (NovoLOG) BEFORE MEALS AND HS SUBQ 03/21/18 06:30 04/19/18 06:29 03/24/18 12:39 Lisinopril (Prinivil) 40 mg DAILY ORAL 03/24/18 09:00 04/23/18 08:59 03/24/18 09:53 Magnesium Hydroxide (Mom) 30 ml DAILYPRN PRN ORAL Constipation 03/23/18 08:30 04/22/18 08:29 03/23/18 21:09 Metformin HCl (Glucophage) 500 mg BID ORAL 03/24/18 09:00 04/23/18 08:59 03/24/18 09:55 Metoprolol Succinate (Toprol XL) 25 mg DAILY ORAL 03/24/18 09:00 04/23/18 08:59 03/24/18 09:53 Pantoprazole (Protonix) 40 mg DAILY ORAL 03/21/18 09:00 04/19/18 08:59 03/24/18 09:52 Vancomycin HCl (Vanco rx to dose) 1 ea DAILY PRN MISC Per rx protocol 03/21/18 09:00 04/18/18 22:44 Vancomycin HCl/ Dextrose 250 ml @ 166.667 mls/hr Q12H IVPB 03/23/18 15:00 03/28/18 14:59 03/24/18 03:49 Isaiah Sousa MD March 24, 2018 13:01
--- NOTE | 2018-03-24 13:44 | Diagnostic Imaging Report ---
Indication: Dyspnea Comparison: 03/22/2018 A single view chest radiograph was obtained. Findings: Right jugular line is stable. Heart size is normal and stable. Bilateral infiltrates are again noted without significant change. Disease is worse on the right. No pleural effusions are seen. IMPRESSION: Bilateral pneumonia. No change
[2018-03-24 15:59] VITALS: BP 130/73
[2018-03-24] MEDS: metFORMIN 500mg tab ORAL SCH (17:06)
[2018-03-24] MEDS ORDERED: Albuterol/Ipratropium 3ml neb HHN SCH (19:00)
[2018-03-24 20:00] VITALS: BP 133/72
--- NOTE | 2018-03-24 20:45 | Progress Note ---
DATE: 03/24/2018 CARDIOLOGY AND INTERNAL MEDICINE PROGRESS NOTE SUBJECTIVE: The patient denies chest pain or shortness of breath, oxygenation has improved. Saturating on room air 92%. OBJECTIVE: VITAL SIGNS: Blood pressure 134/73, pulse 87, respiratory rate 18, afebrile. LUNGS: Bilateral breath sounds with rhonchi. HEART: Regular rhythm and rate. Normal S1 and S2. ABDOMEN: Soft. EXTREMITIES: No edema. NEUROLOGIC: Left-sided weakness. LABORATORY AND DIAGNOSTIC DATA: Chest x-ray reveals bilateral infiltrates right greater than left. Cultures all negative. White count 9.9, hemoglobin 9.7, potassium 3.8. Magnesium 1.8. BUN 10 and creatinine 0.9. IMPRESSION: 1. Bilateral pneumonia likely aspiration. 2. CVA with dysphagia and left hemiparesis. 3. Severe protein-calorie malnutrition. 4. Diabetes mellitus with hyperglycemia. 5. Acute diastolic congestive heart failure. PLAN: 1. Continue antibiotics. 2. Respiratory therapy. 3. Diuresis x1. 4. Advanced diabetic regimen. 5. Protein supplement. 6. Video swallow study. 7. Aspiration precautions. Dell Marin M.D. DR: Ezequiel JOB#: [id number] CC:
[2018-03-25] VITALS: BP 115/68
[2018-03-25] MEDS: Vancomycin 1250mg/D5W 250ml 250 ML IVPB SCH ×2 (03:06→14:06)
[2018-03-25 04:00] VITALS: BP 130/72
[2018-03-25] MEDS: NovoLOG Insulin Flexpen SUBQ SCH ×4 (06:03→20:55)
[2018-03-25 07:51] VITALS: BP 112/63
[2018-03-25] MEDS: Docusate 250mg cap ORAL SCH (08:19)
[2018-03-25] MEDS: Lisinopril 20mg tab ORAL SCH (08:19)
[2018-03-25] MEDS: metFORMIN 500mg tab ORAL SCH ×2 (08:20→17:17)
[2018-03-25] MEDS: Metoprolol Succinate XL 25mg tab ORAL SCH (08:21)
[2018-03-25] MEDS: Heparin 5000 units/ml inj SUBQ SCH ×2 (08:22→20:51)
[2018-03-25] MEDS: Cefepime HCl 1 GM in D5W 55 ML IVPB SCH ×2 (08:35→20:49)
--- NOTE | 2018-03-25 09:48 | Cardiology Report ---
APPROVED REPORT EXAM: Two-dimensional and M-mode echocardiogram with Doppler and color Doppler. INDICATION CVA/TIA M-Mode DIMENSIONS IVSd1.0 (0.7-1.1cm)Left Atrium (MM)3.3 (1.6-4.0cm) LVDd3.8 (3.5-5.6cm)Aortic Root3.5 (2.0-3.7cm) PWd0.9 (0.7-1.1cm)Aortic Cusp Exc.2.0 (1.5-2.0cm) IVSs1.2 cm LVDs2.2 (2.5-4.0cm) PWs1.2 cm Normal left ventricular chamber size, systolic function and wall motion. Left ventricular ejection fraction estimated to be 65-70 %. No evidence of left ventricular hypertrophy. No evidence of pericardial effusion. All other cardiac chamber sizes are within normal limits. Focal aortic valve sclerosis with adequate cusp excursion. Mildly Thickened mitral valve leaflets with normal excursion. Mildly Mitral annulus and aortic root calcification. Normal pulmonic valve structure. Normal tricuspid valve structure. IVC at normal size with physiologic collapse. A color flow and spectral Doppler study was performed and revealed: No aortic regurgitation. Trace mitral regurgitation. Mitral diastolic velocities suggest reduced left ventricular relaxation c/w mild LV diastolic dysfunction (Grade I ). Tarce to mild tricuspid regurgitation. Tricuspid systolic velocities suggests peak right ventricular systolic pressure of 29 mmHg No Pulmonic regurgitation present.
--- NOTE | 2018-03-25 11:37 | Infectious Diseases Prog Note ---
Assessment/Plan Assessment/Plan antibiotics : vancomycin iv, cefepime, doxycycline A 1. pneumonia 2. diabetes mellitus 3. hypertension 4. CVA 5. leucocytosis improving P 1. continue vancomycin iv, cefepime, doxycycline 2, will follow up cultures Subjective ROS Limited/Unobtainable: Yes Allergies: Coded Allergies: No Known Allergies (Unverified , 03/19/18) Objective Vital Signs Last 24 Hour Vital Signs Date Time Temp Pulse Resp B/P (MAP) Pulse Ox O2 Delivery O2 Flow Rate FiO2 03/25/18 08:21 86 112/63 03/25/18 08:19 112/63 03/25/18 07:51 98.2 86 16 112/63 96 98.2 03/25/18 04:21 Room Air 03/25/18 04:00 98.0 90 20 130/72 94 98.0 03/25/18 00:57 Room Air 03/25/18 00:05 94 18 Room Air 03/25/18 00:00 98.0 67 19 115/68 99 98.0 03/24/18 20:00 98.2 87 19 133/72 92 98.2 03/24/18 20:00 Room Air 03/24/18 19:51 95 18 98 Room Air 21 03/24/18 19:41 92 Room Air 21 03/24/18 19:41 Room Air 21 03/24/18 19:38 87 18 92 Room Air 03/24/18 15:59 98.8 70 18 130/73 93 Room Air 98.8 03/24/18 13:42 90 18 93 Nasal Cannula 3.0 32 03/24/18 13:32 83 18 93 Room Air 21 03/24/18 12:00 84 03/24/18 12:00 97.9 87 18 134/73 93 Room Air 97.9 Height (Feet): 5 Height (Inches): 5.00 Weight (Pounds): 156 Respiratory/Chest: lungs clear Cardiovascular: normal rate, regular rhythm, no gallop/murmur Abdomen: soft, non tender Extremities: no edema Current Medications Medications (Trade) Dose Ordered Sig/Jennifer Route PRN Reason Start Time Stop Time Status Last Admin Dose Admin Acetaminophen (Tylenol) 650 mg Q4H PRN ORAL Mild Pain/Temp > 100.5 03/24/18 16:30 04/18/18 16:29 Aspirin (ASA) 325 mg DAILY ORAL 03/25/18 09:00 04/19/18 08:59 03/25/18 08:20 Cefepime HCl 1 gm/ Dextrose 55 ml @ 110 mls/hr Q12HR IVPB 03/24/18 21:00 03/29/18 09:59 03/25/18 08:35 Dextrose (Dextrose 50%) 25 ml STAT PRN IV Hypoglycemia 03/24/18 16:30 04/18/18 16:29 Dextrose (Dextrose 50%) 50 ml STAT PRN IV Hypoglycemia 03/24/18 16:30 04/18/18 16:29 Docusate Sodium (Colace) 250 mg DAILY ORAL 03/25/18 09:00 04/22/18 08:59 03/25/18 08:19 Doxycycline Monohydrate (Vibramycin) 100 mg EVERY 12 HOURS ORAL 03/24/18 21:00 03/28/18 12:59 03/25/18 08:20 Gabapentin (Neurontin) 100 mg THREE TIMES A DAY ORAL 03/24/18 18:00 04/19/18 08:59 03/25/18 08:20 Heparin Sodium (Porcine) (Heparin 5000 units/ml) 5,000 units EVERY 12 HOURS SUBQ 03/24/18 21:00 04/19/18 08:59 03/25/18 08:22 Insulin Aspart (NovoLOG) BEFORE MEALS AND HS SUBQ 03/24/18 17:30 04/19/18 17:29 03/25/18 06:03 Lisinopril (Prinivil) 40 mg DAILY ORAL 03/25/18 09:00 04/23/18 08:59 03/25/18 08:19 Magnesium Hydroxide (Mom) 30 ml DAILYPRN PRN ORAL Constipation 03/25/18 16:30 04/22/18 16:29 Metformin HCl (Glucophage) 500 mg BID ORAL 03/24/18 18:00 04/23/18 08:59 03/25/18 08:20 Metoprolol Succinate (Toprol XL) 25 mg DAILY ORAL 03/25/18 09:00 04/23/18 08:59 03/25/18 08:21 Pantoprazole (Protonix) 40 mg DAILY ORAL 03/25/18 09:00 04/19/18 08:59 03/25/18 08:20 Vancomycin HCl (Vanco rx to dose) 1 ea DAILY PRN MISC Per rx protocol 03/24/18 16:30 04/23/18 16:29 Vancomycin HCl/ Dextrose 250 ml @ 166.667 mls/hr Q12H IVPB 03/25/18 03:00 03/28/18 14:59 03/25/18 03:06 DARLING GRANADOS March 25, 2018 11:37
[2018-03-25 12:43] VITALS: BP 135/76
--- NOTE | 2018-03-25 13:41 | Pulmonology Progress Note ---
Assessment/Plan Assessment/Plan 1. Pneumonia and sepsis. 2. Septic shock, improving. 3. Acute and chronic kidney disease with dehydration. 4. Diabetes. 5. Hypertension. 6. Hyperlipidemia. 7. History of stroke. improving, stronger gets out of bed CXR no change, lagging behind clinical improvement dc planning per Dr Marin Subjective ROS Limited/Unobtainable: Yes Allergies: Coded Allergies: No Known Allergies (Unverified , 03/19/18) Objective Last 24 Hour Vital Signs Date Time Temp Pulse Resp B/P (MAP) Pulse Ox O2 Delivery O2 Flow Rate FiO2 03/25/18 12:43 98.2 83 18 135/76 94 98.2 03/25/18 08:21 86 112/63 03/25/18 08:19 112/63 03/25/18 07:51 98.2 86 16 112/63 96 98.2 03/25/18 04:21 Room Air 03/25/18 04:00 98.0 90 20 130/72 94 98.0 03/25/18 00:57 Room Air 03/25/18 00:05 94 18 Room Air 21 03/25/18 00:00 98.0 67 19 115/68 99 98.0 03/24/18 20:00 98.2 87 19 133/72 92 98.2 03/24/18 20:00 Room Air 03/24/18 19:51 95 18 98 Room Air 21 03/24/18 19:41 92 Room Air 21 03/24/18 19:41 Room Air 21 03/24/18 19:38 87 18 92 Room Air 21 03/24/18 15:59 98.8 70 18 130/73 93 Room Air 98.8 03/24/18 13:42 90 18 93 Nasal Cannula 3.0 32 Intake and Output 03/24/18 03/25/18 19:00 07:00 Intake Total 560 ml 305.000 ml Output Total 500 ml 400 ml Balance 60 ml -95.000 ml Intake Oral 560 ml IV Total 305.000 ml Output Urine Total 500 ml 400 ml General Appearance: no acute distress Respiratory/Chest: rhonchi Cardiovascular: normal rate Current Medications Medications (Trade) Dose Ordered Sig/Jennifer Route PRN Reason Start Time Stop Time Status Last Admin Dose Admin Acetaminophen (Tylenol) 650 mg Q4H PRN ORAL Mild Pain/Temp > 100.5 03/24/18 16:30 04/18/18 16:29 Aspirin (ASA) 325 mg DAILY ORAL 03/25/18 09:00 04/19/18 08:59 03/25/18 08:20 Cefepime HCl 1 gm/ Dextrose 55 ml @ 110 mls/hr Q12HR IVPB 03/24/18 21:00 03/29/18 09:59 03/25/18 08:35 Dextrose (Dextrose 50%) 25 ml STAT PRN IV Hypoglycemia 03/24/18 16:30 04/18/18 16:29 Dextrose (Dextrose 50%) 50 ml STAT PRN IV Hypoglycemia 03/24/18 16:30 04/18/18 16:29 Docusate Sodium (Colace) 250 mg DAILY ORAL 03/25/18 09:00 04/22/18 08:59 03/25/18 08:19 Doxycycline Monohydrate (Vibramycin) 100 mg EVERY 12 HOURS ORAL 03/24/18 21:00 03/28/18 12:59 03/25/18 08:20 Gabapentin (Neurontin) 100 mg THREE TIMES A DAY ORAL 03/24/18 18:00 04/19/18 08:59 03/25/18 08:20 Heparin Sodium (Porcine) (Heparin 5000 units/ml) 5,000 units EVERY 12 HOURS SUBQ 03/24/18 21:00 04/19/18 08:59 03/25/18 08:22 Insulin Aspart (NovoLOG) BEFORE MEALS AND HS SUBQ 03/24/18 17:30 04/19/18 17:29 03/25/18 11:59 Lisinopril (Prinivil) 40 mg DAILY ORAL 03/25/18 09:00 04/23/18 08:59 03/25/18 08:19 Magnesium Hydroxide (Mom) 30 ml DAILYPRN PRN ORAL Constipation 03/25/18 16:30 04/22/18 16:29 Metformin HCl (Glucophage) 500 mg BID ORAL 03/24/18 18:00 04/23/18 08:59 03/25/18 08:20 Metoprolol Succinate (Toprol XL) 25 mg DAILY ORAL 03/25/18 09:00 04/23/18 08:59 03/25/18 08:21 Pantoprazole (Protonix) 40 mg DAILY ORAL 03/25/18 09:00 04/19/18 08:59 03/25/18 08:20 Vancomycin HCl (Vanco rx to dose) 1 ea DAILY PRN MISC Per rx protocol 03/24/18 16:30 04/23/18 16:29 Vancomycin HCl/ Dextrose 250 ml @ 166.667 mls/hr Q12H IVPB 03/25/18 03:00 03/28/18 14:59 03/25/18 03:06 Isaiah Sousa MD March 25, 2018 13:41
[2018-03-25 15:50] VITALS: BP 124/74
[2018-03-25] MEDS ORDERED: Tubing IV Secondary IV ONE (16:08)
[2018-03-25] MEDS ORDERED: Milk of Magnesia 30ml Ud ORAL PRN (16:30)
[2018-03-25 20:35] VITALS: BP 117/69
[2018-03-26 00:27] VITALS: BP 119/72
[2018-03-26] MEDS: Vancomycin 1250mg/D5W 250ml 250 ML IVPB SCH (03:45)
[2018-03-26 04:19] VITALS: BP 122/69
[2018-03-26] MEDS: NovoLOG Insulin Flexpen SUBQ SCH ×3 (06:16→16:49)
[2018-03-26 08:21] VITALS: BP 113/64
[2018-03-26] MEDS: metFORMIN 500mg tab ORAL SCH ×2 (09:07→16:58)
[2018-03-26] MEDS: Cefepime HCl 1 GM in D5W 55 ML IVPB SCH (09:07)
[2018-03-26] MEDS: Metoprolol Succinate XL 25mg tab ORAL SCH (09:08)
[2018-03-26] MEDS: Docusate 250mg cap ORAL SCH (09:08)
[2018-03-26] MEDS: Lisinopril 20mg tab ORAL SCH (09:09)
[2018-03-26] MEDS: Heparin 5000 units/ml inj SUBQ SCH (09:09)
[2018-03-26 11:53] VITALS: BP 111/66
--- NOTE | 2018-03-26 12:50 | Pulmonology Progress Note ---
Assessment/Plan Assessment/Plan 1. Pneumonia and sepsis. 2. Septic shock, improving. 3. Acute and chronic kidney disease with dehydration. 4. Diabetes. 5. Hypertension. 6. Hyperlipidemia. 7. History of stroke. improving, stronger gets out of bed, ambulating doing well dc planning per Dr Marin, discussed CXR lagging behind clinnical improvement Subjective ROS Limited/Unobtainable: Yes Allergies: Coded Allergies: No Known Allergies (Unverified , 03/19/18) Objective Last 24 Hour Vital Signs Date Time Temp Pulse Resp B/P (MAP) Pulse Ox O2 Delivery O2 Flow Rate FiO2 03/26/18 11:53 99.3 78 18 111/66 Room Air 99.3 03/26/18 09:09 113/64 03/26/18 09:08 83 113/64 03/26/18 08:21 98.1 83 16 113/64 96 Room Air 98.1 03/26/18 04:19 98.1 80 18 122/69 97 98.1 03/26/18 00:27 98.2 83 19 119/72 96 98.2 03/25/18 20:35 98.4 80 20 117/69 96 98.4 03/25/18 15:50 98.1 77 18 124/74 93 98.1 Intake and Output 03/25/18 03/26/18 19:00 07:00 Intake Total 905.000 ml 628.334 ml Output Total 1400 ml Balance 905.000 ml -771.666 ml Intake Oral 600 ml 240 ml IV Total 305.000 ml 388.334 ml Output Urine Total 1400 ml # Voids 2 3 General Appearance: WD/WN, no acute distress HEENT: normocephalic, atraumatic Respiratory/Chest: lungs clear Cardiovascular: normal rate Current Medications Medications (Trade) Dose Ordered Sig/Jennifer Route PRN Reason Start Time Stop Time Status Last Admin Dose Admin Acetaminophen (Tylenol) 650 mg Q4H PRN ORAL Mild Pain/Temp > 100.5 03/24/18 16:30 04/18/18 16:29 Aspirin (ASA) 325 mg DAILY ORAL 03/25/18 09:00 04/19/18 08:59 03/26/18 09:08 Cefepime HCl 1 gm/ Dextrose 55 ml @ 110 mls/hr Q12HR IVPB 03/24/18 21:00 03/29/18 09:59 03/26/18 09:07 Dextrose (Dextrose 50%) 25 ml STAT PRN IV Hypoglycemia 03/24/18 16:30 04/18/18 16:29 Dextrose (Dextrose 50%) 50 ml STAT PRN IV Hypoglycemia 03/24/18 16:30 04/18/18 16:29 Docusate Sodium (Colace) 250 mg DAILY ORAL 03/25/18 09:00 04/22/18 08:59 03/26/18 09:08 Doxycycline Monohydrate (Vibramycin) 100 mg EVERY 12 HOURS ORAL 03/24/18 21:00 03/28/18 12:59 03/26/18 09:08 Gabapentin (Neurontin) 100 mg THREE TIMES A DAY ORAL 03/24/18 18:00 04/19/18 08:59 03/26/18 12:13 Heparin Sodium (Porcine) (Heparin 5000 units/ml) 5,000 units EVERY 12 HOURS SUBQ 03/24/18 21:00 04/19/18 08:59 03/26/18 09:09 Insulin Aspart (NovoLOG) BEFORE MEALS AND HS SUBQ 03/24/18 17:30 04/19/18 17:29 03/26/18 12:13 Lisinopril (Prinivil) 40 mg DAILY ORAL 03/25/18 09:00 04/23/18 08:59 03/26/18 09:09 Magnesium Hydroxide (Mom) 30 ml DAILYPRN PRN ORAL Constipation 03/25/18 16:30 04/22/18 16:29 Metformin HCl (Glucophage) 500 mg BID ORAL 03/24/18 18:00 04/23/18 08:59 03/26/18 09:07 Metoprolol Succinate (Toprol XL) 25 mg DAILY ORAL 03/25/18 09:00 04/23/18 08:59 03/26/18 09:08 Pantoprazole (Protonix) 40 mg DAILY ORAL 03/25/18 09:00 04/19/18 08:59 03/26/18 09:08 Vancomycin HCl (Vanco rx to dose) 1 ea DAILY PRN MISC Per rx protocol 03/24/18 16:30 04/23/18 16:29 Vancomycin HCl/ Dextrose 250 ml @ 166.667 mls/hr Q12H IVPB 03/25/18 03:00 03/28/18 14:59 03/26/18 03:45 Isaiah Sousa MD March 26, 2018 12:50
--- NOTE | 2018-03-26 13:37 | Infectious Diseases Prog Note ---
Assessment/Plan Assessment/Plan A 1. pneumonia 2. diabetes mellitus 3. hypertension 4. CVA 5. leucocytosis improving P 1. discontinue vancomycin iv, Continue cefepime& doxycycline 2, will follow up cultures Subjective ROS Limited/Unobtainable: Yes Respiratory: Reports: dry cough Gastrointestinal/Abdominal: Reports: no symptoms Allergies: Coded Allergies: No Known Allergies (Unverified , 03/19/18) Objective Vital Signs Last 24 Hour Vital Signs Date Time Temp Pulse Resp B/P (MAP) Pulse Ox O2 Delivery O2 Flow Rate FiO2 03/26/18 11:53 99.3 78 18 111/66 Room Air 99.3 03/26/18 09:09 113/64 03/26/18 09:08 83 113/64 03/26/18 08:21 98.1 83 16 113/64 96 Room Air 98.1 03/26/18 04:19 98.1 80 18 122/69 97 98.1 03/26/18 00:27 98.2 83 19 119/72 96 98.2 03/25/18 20:35 98.4 80 20 117/69 96 98.4 03/25/18 15:50 98.1 77 18 124/74 93 98.1 Height (Feet): 5 Height (Inches): 5.00 Weight (Pounds): 156 General Appearance: no acute distress HEENT: mucous membranes moist Respiratory/Chest: lungs clear Cardiovascular: normal rate Abdomen: soft, non tender Extremities: no edema Neurologic/Psychiatric: alert, responsive Current Medications Medications (Trade) Dose Ordered Sig/Jennifer Route PRN Reason Start Time Stop Time Status Last Admin Dose Admin Acetaminophen (Tylenol) 650 mg Q4H PRN ORAL Mild Pain/Temp > 100.5 03/24/18 16:30 04/18/18 16:29 Aspirin (ASA) 325 mg DAILY ORAL 03/25/18 09:00 04/19/18 08:59 03/26/18 09:08 Cefepime HCl 1 gm/ Dextrose 55 ml @ 110 mls/hr Q12HR IVPB 03/24/18 21:00 03/29/18 09:59 03/26/18 09:07 Dextrose (Dextrose 50%) 25 ml STAT PRN IV Hypoglycemia 03/24/18 16:30 04/18/18 16:29 Dextrose (Dextrose 50%) 50 ml STAT PRN IV Hypoglycemia 03/24/18 16:30 04/18/18 16:29 Docusate Sodium (Colace) 250 mg DAILY ORAL 03/25/18 09:00 04/22/18 08:59 03/26/18 09:08 Doxycycline Monohydrate (Vibramycin) 100 mg EVERY 12 HOURS ORAL 03/24/18 21:00 03/28/18 12:59 03/26/18 09:08 Gabapentin (Neurontin) 100 mg THREE TIMES A DAY ORAL 03/24/18 18:00 04/19/18 08:59 03/26/18 12:13 Heparin Sodium (Porcine) (Heparin 5000 units/ml) 5,000 units EVERY 12 HOURS SUBQ 03/24/18 21:00 04/19/18 08:59 03/26/18 09:09 Insulin Aspart (NovoLOG) BEFORE MEALS AND HS SUBQ 03/24/18 17:30 04/19/18 17:29 03/26/18 12:13 Lisinopril (Prinivil) 40 mg DAILY ORAL 03/25/18 09:00 04/23/18 08:59 03/26/18 09:09 Magnesium Hydroxide (Mom) 30 ml DAILYPRN PRN ORAL Constipation 03/25/18 16:30 04/22/18 16:29 Metformin HCl (Glucophage) 500 mg BID ORAL 03/24/18 18:00 04/23/18 08:59 03/26/18 09:07 Metoprolol Succinate (Toprol XL) 25 mg DAILY ORAL 03/25/18 09:00 04/23/18 08:59 03/26/18 09:08 Pantoprazole (Protonix) 40 mg DAILY ORAL 03/25/18 09:00 04/19/18 08:59 03/26/18 09:08 Vancomycin HCl (Vanco rx to dose) 1 ea DAILY PRN MISC Per rx protocol 03/24/18 16:30 04/23/18 16:29 Vancomycin HCl/ Dextrose 250 ml @ 166.667 mls/hr Q12H IVPB 03/25/18 03:00 03/28/18 14:59 03/26/18 03:45 CLINT WILSON March 26, 2018 13:37
[2018-03-26 16:06] VITALS: BP 111/64
[2018-03-26] MEDS ORDERED: Levofloxacin 500mg tab ORAL SCH (16:30)
[2018-03-26] MEDS ORDERED: LEVAQUIN500 MG ORAL (17:27)
[2018-03-26] MEDS ORDERED: Tubing IV Secondary IV ONE (18:04)
[2018-03-26] MEDS ORDERED: NS 500ML ONE (18:04)
--- NOTE | 2018-03-27 02:15 | Progress Note ---
DATE: 03/25/2018 INTERNAL MEDICINE PROGRESS Late entry for 03/25/2018. SUBJECTIVE: The patient has no chest pain or shortness of breath, but does have some cough following meals. Swallow evaluation noted. OBJECTIVE: VITAL SIGNS: Blood pressure 112/63, pulse 86, and respirations 16. LUNGS: Few rales. No wheezing. CARDIAC: Regular rhythm and rate. Normal S1 and S2. ABDOMEN: Soft. EXTREMITIES: No edema. NEUROLOGIC: No accessory muscle use. SKIN: No skin rash. IMPRESSION: 1. Pneumonia, clinically improved. 2. Dysphagia. 3. Type 2 diabetes mellitus. 4. Acute on chronic diastolic congestive heart failure. 5. Cerebrovascular accident with left hemiparesis. 6. Severe protein-calorie malnutrition. PLAN: 1. Continue antibiotics and respiratory hygiene. 2. Follow up video swallow study. 3. Discharge planning on oral therapy in the next 24 hours. Dell Marin M.D. DR: SARITHA JOB#: [id number] CC:
--- NOTE | 2018-03-27 03:00 | Progress Note ---
DATE: 03/26/2018 SUBJECTIVE: The patient is tolerating normal at 100% of meals. No coughing noted. Discussed with and the patient at bedside regarding aspiration precautions and dysphagia and risk of secondary pneumonia. The patient will continue these precautions as an outpatient. Video swallow study will be deferred at this time. No chest pain, cough or shortness of breath. Oxygen saturations on room air are adequate. OBJECTIVE: VITAL SIGNS: Stable, blood pressure 111/64, pulse 78, respiratory rate 19 and oxygen saturation 96%. LUNGS: Few rales. No accessory muscle use. No wheezing. HEART: Regular rhythm and rate. Normal S1 and S2. EXTREMITIES: With trace dependent edema. IMPRESSION: 1. Community-acquired pneumonia. 2. Dysphagia, possible component of aspiration. 3. Severe protein-calorie malnutrition. 4. Acute on chronic diastolic congestive heart failure, compensated. 5. Type 2 diabetes mellitus with slightly elevation of glucose levels. 6. CVA with left hemiparesis. PLAN: 1. Outpatient followup. 2. Complete antibiotics with oral regimen. 3. Follow up chest x-ray in two weeks. 4. Medications reviewed and reconciled for discharge. 5. Based on home oral intake, diabetic regimen will be further up titrated, mainly metformin dose. Dell Marin M.D. DR: BETTY JOB#: [id number] CC:
--- NOTE | 2018-03-27 11:57 | Diagnostic Imaging Report ---
INDICATION: Cough COMPARISON: Chest x-ray dated 04-04 FINDINGS: Single frontal view demonstrates a normal cardiomediastinal silhouette. Continued demonstration of bilateral opacities in the lungs, right greater than left. Right internal jugular catheter with tip in the mid superior vena cava. Atherosclerotic vascular disease. The visualized osseous structures are within normal limits. IMPRESSION: No significant change. Bilateral lung opacities right greater than left.
--- NOTE | 2018-03-27 17:17 | Discharge Summary ---
Discharge Summary Discharge Summary Discharge Summary DATE OF ADMISSION: 03/19/2018 DATE OF DISCHARGE: 03/26/2018 CONSULTANTS: Dr. Isaiah Leonard BRIEF HOSPITAL COURSE: Patient is a 63-year-old male, with prior history of cerebrovascular accident and left-sided weakness presented to ED complaining of generalized weakness and fall with no loss of consciousness. He is normally ambulatory with a cane. He has medical history significant for CVA, hypertension, hyperlipidemia, with type 2 diabetes mellitus. On evaluation at ED, x-ray showed an enlarged infiltrate on the right mid lung field consistent with pneumonia. He was given IV fluids. Blood work showed leukocytosis, renal function was elevated, lactic acid was 3.2. EKG was in sinus tachycardia. He continued to remain hypotensive. Central line was inserted to the right jugular and was started on IV pressors. He was then admitted to ICU. He was started on vancomycin and cefepime. He was given respiratory hygiene. He was placed on anti-failure and antiplatelet therapy. She was eventually taken off IV pressors. Serial chest x-rays were done. Doxycycline was added to his regimen. Leukocytosis down trended, he was clinically improved. He underwent swallow evaluation. Discussed with regarding aspiration precautions and dysphagia and risk for secondary pneumonia. He was eventually discharged home. FINAL DIAGNOSES: Community-acquired pneumonia Dysphagia, possible component of aspiration Severe protein calorie malnutrition Acute on chronic diastolic congestive heart failure, compensated Type 2 diabetes mellitus with slightly elevated glucose levels CVA with left-sided hemiparesis Septic shock Hypertension Hyperlipidemia DISPOSITION: Patient was discharged home. DISCHARGE MEDICATIONS: Refer to Discharge Medication List. Prescription for Levaquin 500 mg po daily 7 days. DISCHARGE INSTRUCTIONS: Follow up with PCP in a week. I have been assigned to dictate discharge summary on this account, and I was not involved in the patient's management. Nilda Uriostegui NP March 27, 2018 17:17
== END 2018-03-26 18:05 | disposition home or self-care (01) | DRG 720 ==
LOC: EDBD 14:40 → EMR 15:08 → EDBEDREQ 16:48 → ICU 16:50 → EDBEDREQ 17:33 → EDBEDREQSVC 17:58 → EDBEDREQ 18:05 → 2W 03-20 23:42 → 4W 03-24 15:49
PROC: 05HM33Z Insertion of Infusion Device into Right Internal Jugular Vein, Percutaneous Approach (ICD-10-PCS; principal; 2018-03-19)
DX: A41.9 Sepsis, unspecified organism (principal); R65.21 Severe sepsis with septic shock; I50.33 Acute on chronic diastolic (congestive) heart failure; E43 Unspecified severe protein-calorie malnutrition; N17.9 Acute kidney failure, unspecified; J18.9 Pneumonia, unspecified organism; I13.0 Hypertensive heart and chronic kidney disease with heart failure and stage 1 through stage 4 chronic kidney disease, or unspecified chronic kidney disease; E87.1 Hypo-osmolality and hyponatremia; R13.10 Dysphagia, unspecified; E11.22 Type 2 diabetes mellitus with diabetic chronic kidney disease; N18.9 Chronic kidney disease, unspecified; E78.4 Other hyperlipidemia; I25.9 Chronic ischemic heart disease, unspecified; E83.42 Hypomagnesemia; E86.0 Dehydration; Z68.26 Body mass index [BMI] 26.0-26.9, adult
CPT/HCPCS: 36415; 71045; 74230; 80053; 80202; 81003; 82550; 82553; 82962; 83605; 83735; 83880; 84100; 84484; 85007; 85025; 86713; 86738; 87040; 87070; 87081; 87205; 93005; 93306; 94640; 94664; 94760; 99291; J1815; J7620; J8499

== ENCOUNTER 2018-03-29 08:30 | Emergency (ER) | payer MEDICAID ==
[~2018-03-29] VITALS: Ht 170.2 cm; Wt 72.6 kg
[~2018-03-29 08:30] MED LIST: AMLODIPINE BESYL5 MG ORAL; ASPIRIN EC325 MG ORAL; CILOXAN 0.3% O1 DROP; GABAPENTIN100 MG ORAL; GLIMEPIRIDE2 MG ORAL; JANUVIA100 MG ORAL; LEVAQUIN500 MG ORAL; LIPITOR20 MG ORAL; LISINOPRIL40 MG ORAL; METFORMIN HCL1000 M1 ORAL; METOPROLOL SUCC25 MG ORAL
[2018-03-29 09:18] LABS: APPEARANCE,URINE CLEAR; BILIRUBIN, URINE NEGATIVE (NEGATIVE); COLOR,URINE PALE YELLOW; GLUCOSE, URINE (UA) NEGATIVE (NEGATIVE); HEMATOCRIT 35.5 % (42.0-52.0); HEMOGLOBIN 11.5 G/DL (14.2-18.0); KETONES,URINE NEGATIVE (NEGATIVE); LEUKOCYTE ESTERASE ,URINE NEGATIVE (NEGATIVE); MEAN CORPUSCULAR VOLUME 84 FL (80-99); NITRITE,URINE NEGATIVE (NEGATIVE); PH,URINE 6 (4.5-8.0); PLATELET COUNT 564 K/UL (150-450); PROTEIN,URINE NEGATIVE (NEGATIVE); UROBILINOGEN,URINE NORMAL MG/DL (0.0-1.0); WHITE BLOOD COUNT 9.5 K/UL (4.8-10.8)
[2018-03-29 09:28] LABS: ANION GAP 11 mmol/L (5-15); BLOOD UREA NITROGEN 18 mg/dL (7-18); CALCIUM 9.5 MG/DL (8.5-10.1); CARBON DIOXIDE 25 MMOL/L (21-32); CHLORIDE 99 MMOL/L (98-107); CREATININE 1.2 MG/DL (0.55-1.30); POTASSIUM 4.2 MMOL/L (3.5-5.1); SODIUM 135 MMOL/L (136-145)
[2018-03-29 09:33] LABS: ALANINE AMINOTRANSFERASE 74 U/L (12-78); ALBUMIN/GLOBULIN RATIO 0.5 (1.0-2.7); ALKALINE PHOSPHATASE 90 U/L (46-116); ASPARTATE AMINO TRANSFERASE 37 U/L (15-37); BILIRUBIN,TOTAL 0.3 MG/DL (0.2-1.0)
--- NOTE | 2018-03-29 09:43 | Emergency Room Report ---
History of Present Illness General Chief Complaint: Altered Mental Status Source: Patient Present Illness HPI This patient presents for hyperglycemia. The history is per the . She states that this morning he had been very confused and with nonsensical speech. She states that she did note last night that he was acting bizarrely. He was recently discharged from the hospital for a pneumonia. Per EMS, on their arrival, the patient was altered and when they obtained a blood sugar it was 20. He was given D50 and had increase in his blood sugar did 250 and he regained his normal mental status. He is now back to his baseline mental status. He denies fever or chills. He denies nausea or vomiting. He denies chest pain or shortness of breath. He denies abdominal pain. He denies dysuria or hematuria. He does have a history of diabetes. Also noted per his , he has not been eating much and has been continuing to take his diabetic medications. There are no other complaints. Allergies: Coded Allergies: No Known Allergies (Unverified , 03/19/18) Patient History Past Medical History: see triage record, DM, HTN, CVA/TIA Social History: Denies: smoking, alcohol use, drug use Reviewed Nursing Documentation: PMH: Agreed; PSxH: Agreed Nursing Documentation-PMH Past Medical History: No History, Except For Hx Cardiac Problems: Yes - PNA Hx Hypertension: Yes Hx Pacemaker: No Hx Asthma: No Hx COPD: No Hx Diabetes: Yes Hx Cancer: No Hx Gastrointestinal Problems: No Hx Dialysis: No History Of Psychiatric Problem: No Hx Neurological Problems: Yes Hx Cerebrovascular Accident: Yes - right sided deficit Hx Seizures: No Review of Systems All Other Systems: negative except mentioned in HPI Physical Exam Vital Signs Date Time Temp Pulse Resp B/P (MAP) Pulse Ox O2 Delivery O2 Flow Rate FiO2 03/29/18 08:22 94 18 158/96 98 Room Air Sp02 EP Interpretation: reviewed, normal General Appearance: no apparent distress, alert, GCS 15, non-toxic Head: normocephalic, atraumatic Eyes: bilateral eye normal inspection, bilateral eye PERRL ENT: hearing grossly normal, normal pharynx, no angioedema, normal voice Neck: full range of motion, supple/symm/no masses Respiratory: chest non-tender, lungs clear, normal breath sounds, speaking full sentences Cardiovascular #1: regular rate, rhythm, no edema Gastrointestinal: normal bowel sounds, non tender, soft, non-distended, no guarding, no rebound Rectal: deferred Musculoskeletal: back normal, gait/station normal, normal range of motion, non- tender Neurologic: alert, oriented x3, responsive, motor strength/tone normal, sensory intact, speech normal Psychiatric: judgement/insight normal, memory normal, mood/affect normal, no suicidal/homicidal ideation Skin: normal color, no rash, warm/dry, well hydrated Medical Decision Making Diagnostic Impression: Primary Impression: Hypoglycemia Additional Impression: Pneumonia ER Course This patient has hypoglycemia. Per EMS his initial blood sugar after given an amp of D50 was 250. When he arrived here he was 100 ED, shortly thereafter he was 118, been in the 90s, then in the 60s. He was given a complex high carbohydrate meal. He was placed on D5 half-normal saline. I'm concerned that this patient's hypoglycemia or persist. The patient does have opacification on chest x-ray consistent with pneumonia. However, when compared to his previous x -ray this is significantly improving. The patient's insurance company as capitated to another hospital. The patient is stable for transfer. He was transferred for further monitoring of his blood sugar and inpatient management. Laboratory Tests Test 03/29/18 08:45 03/29/18 09:05 White Blood Count 9.5 K/UL (4.8-10.8) Red Blood Count 4.20 M/UL (4.70-6.10) L Hemoglobin 11.5 G/DL (14.2-18.0) L Hematocrit 35.5 % (42.0-52.0) L Mean Corpuscular Volume 84 FL (80-99) Mean Corpuscular Hemoglobin 27.4 PG (27.0-31.0) Mean Corpuscular Hemoglobin Concent 32.4 G/DL (32.0-36.0) Red Cell Distribution Width 13.0 % (11.6-14.8) Platelet Count 564 K/UL (150-450) H Mean Platelet Volume 5.5 FL (6.5-10.1) L Neutrophils (%) (Auto) % (45.0-75.0) Lymphocytes (%) (Auto) % (20.0-45.0) Monocytes (%) (Auto) % (1.0-10.0) Eosinophils (%) (Auto) % (0.0-3.0) Basophils (%) (Auto) % (0.0-2.0) Neutrophils % (Manual) Pending Lymphocytes % (Manual) Pending Platelet Estimate Pending Platelet Morphology Pending Urine Color Pale yellow Urine Appearance Clear Urine pH 6 (4.5-8.0) Urine Specific [place] 1.010 (1.005-1.035) Urine Protein Negative (NEGATIVE) Urine Glucose (UA) Negative (NEGATIVE) Urine Ketones Negative (NEGATIVE) Urine Occult Blood Negative (NEGATIVE) Urine Nitrite Negative (NEGATIVE) Urine Bilirubin Negative (NEGATIVE) Urine Urobilinogen Normal MG/DL (0.0-1.0) Urine Leukocyte Esterase Negative (NEGATIVE) Sodium Level 135 MMOL/L (136-145) L Potassium Level 4.2 MMOL/L (3.5-5.1) Chloride Level 99 MMOL/L (98-107) Carbon Dioxide Level 25 MMOL/L (21-32) Anion Gap 11 mmol/L (5-15) Blood Urea Nitrogen 18 mg/dL (7-18) Creatinine 1.2 MG/DL (0.55-1.30) Estimate Glomerular Filtration Rate > 60 mL/min (>60) Glucose Level 118 MG/DL (74-106) H Calcium Level 9.5 MG/DL (8.5-10.1) Magnesium Level 1.6 MG/DL (1.8-2.4) L Total Bilirubin 0.3 MG/DL (0.2-1.0) Aspartate Amino Transferase (AST) 37 U/L (15-37) Alanine Aminotransferase (ALT) 74 U/L (12-78) Alkaline Phosphatase 90 U/L (46-116) Total Protein 9.0 G/DL (6.4-8.2) H Albumin 3.0 G/DL (3.4-5.0) L Globulin 6.0 g/dL Albumin/Globulin Ratio 0.5 (1.0-2.7) L Acetone Level Negative (NEGATIVE) EKG Diagnostic Results Rate: normal, tachycardiac Rhythm: NSR ST Segments: no acute changes Rhythm Strip Diag. Results EP Interpretation: yes Rate: 102 Rhythm: no PVC's, no ectopy, other - 100's Chest X-Ray Diagnostic Results Chest X-Ray Diagnostic Results : Chest X-Ray Ordered: Yes # of Views/Limited/Complete: 1 View Indication: Other - Recent PNA EP Interpretation: Yes Interpretation: no effusion, no pneumothorax, other - RML opacity. L. Upper lobe opacity (improving from previous) Last Vital Signs Date Time Temp Pulse Resp B/P (MAP) Pulse Ox O2 Delivery O2 Flow Rate FiO2 03/29/18 08:22 94 18 158/96 98 Room Air Status: improved Disposition: XFER SHT-TRM HOSP Condition: Stable Referrals: [facility],REFERRING (PCP) FABY CARVAJAL D.O. March 29, 2018 09:43
[2018-03-29 10:00] VITALS: BP_SYST 136; BP_SYST 98; BP_DIAS 59; BP_DIAS 70
--- NOTE | 2018-03-29 10:15 | Diagnostic Imaging Report ---
INDICATION: Pain COMPARISON: Chest x-ray of 03/24/18 FINDINGS: Single frontal view demonstrates a normal cardiomediastinal silhouette. Atherosclerotic vascular disease. Removal of right internal jugular catheter. Bilateral upper lung zone opacity. No pleural effusions. The visualized osseous structures are within normal limits. IMPRESSION: Atherosclerotic vascular disease. Removal of right internal jugular catheter. Bilateral upper lung zone opacity.
[2018-03-29] MEDS ORDERED: D5 1/2NS 1,000 ML IV SCH (10:45)
[2018-03-29 12:00] VITALS: BP 117/63
[2018-03-29] MEDS ORDERED: cefTRIAXone 1 GM in NS 55 ML IVPB ONE (12:45)
[2018-03-29] MEDS ORDERED: cefTRIAXone 1 GM in D5W 55 ML IVPB ONE (13:15)
[2018-03-29 13:50] VITALS: BP 117/63
--- NOTE | 2018-04-01 14:46 | Cardiology Report ---
APPROVED REPORT EKG Measurement Heart [id number] N[address] abnormality Abnormal ECG
== END 2018-03-29 13:55 | disposition short-term general hospital (02) ==
LOC: EDBD 08:30 → EMR 08:47 → EDBEDREQ 11:05 → EMR 13:55
DX: E11.649 Type 2 diabetes mellitus with hypoglycemia without coma (principal); I10 Essential (primary) hypertension
CPT/HCPCS: 36415; 71045; 80053; 81003; 82009; 83735; 85007; 85025; 87081; 93005; 99285; J0696